=== PATIENT | male | born 1940 | race Caucasian/White ===

== ENCOUNTER 2021-08-28 02:14 | Inpatient (IN) | payer OTHER, MEDICAID, SELFPAY ==
[~2021-08-28] VITALS: Ht 182.9 cm; Wt 88.5 kg
[2021-08-28 02:26] VITALS: BP_SYST 132
--- NOTE | 2021-08-28 02:26 | NUR ---
Patient to ER bed 1 to gown for evaluation. Side rails up.
--- NOTE | 2021-08-28 02:28 | NUR ---
Assumed total care of patient. Patient GCS 15, BIB ALS from home, found by son on bathroom floor with feces on him, unconscious. When medics arrived, patients BP was hypotensive in the 80s, received fluids. Blood sugar was 131. Per family, patient has been feeling weak for 2 weeks. Patient denies any head/neck, chest, leg, arm pain. Patient does not appear to have any noticeable bruising/abrasions to head or body. Patient on resident intern, VSS, breathing even and unlabored, no signs of acute distress noted. Patient clothes disrobed, patient cleaned and wiped, placed in clean gown, given warm blankets.
[2021-08-28] MEDS ORDERED: NACL 0.9% 1,000 ML IV ONE (02:30)
--- NOTE | 2021-08-28 02:30 | NUR ---
# 18 gauge angiocath placed to LAC placed by fire. Opsite placed over site. Blood return noted. Blood for lab drawn from site. Flushed with 10 cc of normal saline. No evidence of infiltration noted.
--- NOTE | 2021-08-28 02:32 | NUR ---
ER Dr. Ocampo at bedside examining patient.
--- NOTE | 2021-08-28 02:55 | NUR ---
Patient transported to radiology via gurney, accompanied by Boubacar RN.
--- NOTE | 2021-08-28 03:00 | NUR ---
Returned from radiology, back to [facility].
[2021-08-28 03:59] LABS: HEMATOCRIT 34.9 % (36-54); HEMOGLOBIN 11.9 g/dL (14.0-18.0); MEAN CORPUSCULAR HEMOGLOBIN 30 pg (27-31); MEAN CORPUSCULAR HGB CONC 34 % (32-36); MEAN CORPUSCULAR VOLUME 89 fL (79.0-98.0); PLATELET COUNT (AUTO) 149 K/uL (130-430); RED BLOOD CELL COUNT(AUTO) 3.93 MIL/uL (4.2-6.2); WHITE BLOOD COUNT (AUTO) 3.8 K/uL (4.8-10.8)
[2021-08-28 04:00] LABS: ANION GAP 12 (5-15); CALCIUM 8.5 mg/dL (8.4-11.0); CHLORIDE 97 mmol/L (98-107); GLUCOSE 104 mg/dL (70-99); POTASSIUM 3.4 mmol/L (3.5-5.1); SODIUM SERUM 135 mmol/L (136-145); UREA NITROGEN, BLOOD 21 mg/dL (8-21)
[2021-08-28 04:08] LABS: ALANINE AMINOTRANSFERASE 29 U/L (12-78); ALBUMIN 3.3 g/dL (3.4-4.8); ASPARTATE AMINOTRANSFERASE 32 U/L (10-37); TOTAL BILIRUBIN 0.2 mg/dL (0.0-1.0)
[2021-08-28 04:09] LABS: ALCOHOL, BLOOD < 3 mg/dL (<10)
[2021-08-28 04:20] LABS: PROTHROMBIN TIME 10.4 SECS (9.5-12.5)
--- NOTE | 2021-08-28 04:40 | NUR ---
Lab at bedside for blood draw
--- NOTE | 2021-08-28 04:50 | NUR ---
Patient given urinal to provide urine sample
--- NOTE | 2021-08-28 05:00 | NUR ---
Patient unable to urinate at this moment. aware. Verbal order received for in n out cather
[2021-08-28 05:28] LABS: LYMPHOCYTES % (MANUAL) 14 % (20-46); MONOCYTES % (MANUAL) 8 % (0-11)
--- NOTE | 2021-08-28 05:28 | NUR ---
Dr. Ocampo speaking with patients son on phone
--- NOTE | 2021-08-28 05:28 | NUR ---
Orthostatics performed and given to
--- NOTE | 2021-08-28 05:34 | NUR ---
Patient given water to drink
--- NOTE | 2021-08-28 06:05 | NUR ---
Received admit orders from Dr. Huang
--- NOTE | 2021-08-28 06:09 | NUR ---
Patient will be admitted to care of Dr. Amezquita. Admitted to MS unit. Will go to room pending. Belongings list completed. Complete and up to date summary report printed. SBAR report to be given at bedside with opportunity for questions.
--- NOTE | 2021-08-28 06:12 | NUR ---
Patient's code status is Full Code paperwork completed and placed in chart.
[2021-08-28 07:07] LABS: BILIRUBIN,URINE NEGATIVE (NEGATIVE); CLARITY/URINE CLEAR (CLEAR); COLOR,URINE YELLOW (YELLOW); GLUCOSE,URINE NEGATIVE (NEGATIVE); KETONES,URINE NEGATIVE (NEGATIVE); LEUKOCYTE ESTERASE ,URINE NEGATIVE (NEGATIVE); NITRITE, URINE NEGATIVE (NEGATIVE); PROTEIN URINE 1+ (NEGATIVE); UROBILINOGEN,URINE 0.2 (0.2-1.0)
--- NOTE | 2021-08-28 07:07 | NUR ---
Report given to JEFFREY Jean for continuation of care.
[2021-08-28 07:09] LABS: BLOOD, URINE TRACE (NEGATIVE)
[2021-08-28 07:15] LABS: BACTERIA,URINE FEW /HPF (None Seen); MUCUS,URINE 1+ /LPF (None Seen); WBC,URINE 0-3 /HPF (0-3)
[2021-08-28] MEDS ORDERED: HYDROcodone/ACETAMIN 10-325 MG TAB PO PRN (07:15)
[2021-08-28] MEDS ORDERED: HYDROcodone/ACETAMIN 5-325 MG TAB (NORCO/ VICODIN) PO PRN (07:15)
[2021-08-28] MEDS ORDERED: ACETAMINOPHEN 325 MG TABLET PO PRN ×2 (07:15→07:30)
[2021-08-28] MEDS ORDERED: ONDANSETRON HCL 4 MG/2 ML VIAL IVP PRN (07:15)
[2021-08-28] MEDS ORDERED: LORazepam 2 MG/ML VIAL IVP PRN (07:15)
[2021-08-28] MEDS ORDERED: NALOXONE HCL 0.4 MG/ML AMP (NARCAN) IVP PRN ×2 (07:15)
[2021-08-28] MEDS ORDERED: IPRATROPIUM BROM 0.5 MG/2.5 ML VIAL.NEB (ATROVENT) INH PRN (07:15)
[2021-08-28] MEDS ORDERED: ALBUTEROL SULFATE 0.083% 2.5 MG/3 ML VIAL.NEB INH PRN (07:15)
[2021-08-28 07:19] LABS: BARBITURATE, URINE NEGATIVE (NEG <=200); METHAMPHETAMINES SCREEN,URINE NEGATIVE (NEG <=500); URINE AMPHETAMINE NEGATIVE (NEG <=500)
[2021-08-28 07:20] LABS: BENZODIAZEPINE, URINE NEGATIVE (NEG <=150); CANNABINOID, URINE NEGATIVE (NEG <=50); COCAINE, URINE NEGATIVE (NEG <=150); OPIATE, URINE NEGATIVE (NEG <=100); PHENCYCLIDINE SCREEN,URINE NEGATIVE (NEG <=25); UR TRICYCLIC ANTIDEPRESSANTS NEGATIVE (NEG <=300); URINE METHADONE NEGATIVE (NEG <=200); URINE OXYCODONE SCREEN NEGATIVE (NEG <=100); URINE PROPOXYPHENE SCREEN NEGATIVE (NEG <=300)
--- NOTE | 2021-08-28 07:58 | NUR ---
ULTRASOUND AT BEDSIDE
[2021-08-28] MEDS: D5/0.45 NS 1,000 ML IV SCH ×2 (09:19→19:54)
[2021-08-28] MEDS: cefTRIAXone 1 GM IVPB PREMIX 50 ML IV SCH (09:39)
[2021-08-28] MEDS: ENOXAPARIN SODIUM 30 MG/0.3 ML SYRINGE SUBCUT SCH (09:41)
[2021-08-28] MEDS: DECADRON 4 MG TABLET PO SCH (09:41)
--- NOTE | 2021-08-28 09:50 | NUR ---
ADMISSION NOTE Received patient from ER via gurney. Patient admitted with diagnosis of . Patient is awake, alert, oriented X 3. Patient oriented to hospital room, call light, toileting, pain management and safety-teach back done. Patient informed that Katey will be her nurse and that their room number is 125-A. Personal belongings checked and Belongings List documented. Call light within reach.
--- NOTE | 2021-08-28 10:04 | NUR ---
CONSULTATION PAGED REASON FOR CONSULTATION: COVID WAS CONSULT CALLED?Y PERSON WHO WAS NOTIFIED:ASHLEY CONSULTING PHYSICIAN:ELLEN DURON BREWERY REPRESENTATIVE SPECIALTY:INFECTIOUS DISEASE BREWERY REPRESENTATIVE PHONE NUMBER:[phone] REQUESTING PHYSICIAN:NGUYEN FENTON
--- NOTE | 2021-08-28 10:08 | NUR ---
Patient will be admitted to care of [facility]. Admitted to med surg unit. Will go to room 125. Belongings list completed. Complete and up to date summary report printed. SBAR report to be given at bedside with opportunity for questions.
[2021-08-28 10:12] VITALS: BP_SYST 163
--- NOTE | 2021-08-28 10:13 | NUR ---
CONSULTATION PAGED REASON FOR CONSULTATION:SYNCOPE WAS CONSULT CALLED? PERSON WHO WAS NOTIFIED:JONEL BOBBY CONSULTING PHYSICIAN:JONEL BOBBY INTERVENTIONAL PHYSIATRIST SPECIALTY:CARDIO INTERVENTIONAL PHYSIATRIST PHONE [phone] REQUESTING PHYSICIAN:KUSUM WASSERMAN AMIT
--- NOTE | 2021-08-28 10:19 | NUR ---
CONSULTATION PAGED REASON FOR CONSULTATION:SYNCOPE WAS CONSULT CALLED?Y PERSON WHO WAS NOTIFIED:TEXT MESSAGED ARAMIS MCGRATH CONSULTING PHYSICIAN:ARAMIS MCGRATH SEWING MACHINE ATTACHMENT TESTER SPECIALTY:NEURO SEWING MACHINE ATTACHMENT TESTER PHONE NUMBER:[phone] REQUESTING PHYSICIAN:NGUYEN FENTON
--- NOTE | 2021-08-28 11:55 | NUR ---
Up grade to telemetry: Patient up graded to telemetry per Dr Barnett.
[2021-08-28] MEDS: AZITHROMYCIN 500 MG in NS 250 ML IV SCH (12:20)
[2021-08-28 12:32] VITALS: BP_SYST 159
--- NOTE | 2021-08-28 15:27 | NUR ---
PHYSICAL THERAPY EVALUATION COMPLETED. PATIENT IS ABLE TO AMBULATE WITH ASSISTANCE. NEEDS FWW FOR STABILITY.
[2021-08-28 16:00] VITALS: BP_SYST 155
--- NOTE | 2021-08-28 16:47 | NUR ---
Home Coordinator took over care of pt. No voiced concerns. Will continue to monitor.
--- NOTE | 2021-08-28 16:47 | NUR ---
Transfer Care: Transfer care to Nereyda Du,patient in stable condition.
--- NOTE | 2021-08-28 18:14 | NUR ---
Pt resting in bed. No voiced concerns. Call smith in reach. Bed in low position. Will continue to monitor.
[2021-08-28 20:25] VITALS: BP_SYST 131
[2021-08-28] MEDS: ASCORBIC ACID 500 MG TABLET PO SCH (21:04)
[2021-08-29 01:01] VITALS: BP_SYST 150
--- NOTE | 2021-08-29 07:17 | NUR ---
HANDOFF WITH JEFFREY HANKS. MAURI HOFFMAN RN
--- NOTE | 2021-08-29 07:30 | NUR ---
rn opening note patient is awake and alert. report was endorsed by night nurse. patient has no signs of any distress, breathing is equal and non labored. all safety precautions in place
[2021-08-29 08:03] VITALS: BP_SYST 149
--- NOTE | 2021-08-29 10:00 | NUR ---
medication Patient given all scheduled medication.tolerated well. Patient has call light with him educate to use call light for assistance. no other needs at this time. urinal emptied. no other needs at this time.
[2021-08-29] MEDS: CHOLECALCIFEROL (VITAMIN D3) 5,000 UNIT TABLET PO SCH (10:05)
[2021-08-29] MEDS: ASCORBIC ACID 500 MG TABLET PO SCH ×2 (10:05→21:28)
[2021-08-29] MEDS: amLODIPine BESYLATE 5 MG TABLET PO SCH (10:05)
[2021-08-29] MEDS: DECADRON 4 MG TABLET PO SCH (10:05)
[2021-08-29] MEDS: cefTRIAXone 1 GM IVPB PREMIX 50 ML IV SCH (10:06)
[2021-08-29] MEDS: ENOXAPARIN SODIUM 30 MG/0.3 ML SYRINGE SUBCUT SCH ×2 (10:12→21:30)
[2021-08-29] MEDS: AZITHROMYCIN 500 MG in NS 250 ML IV SCH (11:19)
[2021-08-29] MEDS: D5/0.45 NS 1,000 ML IV SCH (11:20)
[2021-08-29 12:00] VITALS: BP_SYST 150
[2021-08-29] MEDS ORDERED: ENOXAPARIN SODIUM 30 MG/0.3 ML SYRINGE SUBCUT SCH (13:45)
--- NOTE | 2021-08-29 14:00 | NUR ---
rn rounding patient shows no complaints a this time. call light is with him educated to use for assistance. no other needs at this time.
[2021-08-29 15:00] VITALS: BP_SYST 160
--- NOTE | 2021-08-29 19:10 | NUR ---
rn closing note report was endorsed to night nurse. patient is awake and alert sitting in bed, no signs of any distress, breathing is equal and non labored. patient has all safety precautions in place. patient has no other needs at this time. patient is on the phone with his son.
[2021-08-29 20:25] VITALS: BP_SYST 138
[2021-08-29] MEDS: CARBIDOPA/LEVODOPA 25/100 MG TABLET PO SCH (21:28)
[2021-08-30 00:36] VITALS: BP_SYST 170
[2021-08-30 00:40] VITALS: BP_SYST 90
[2021-08-30] MEDS: D5/0.45 NS 1,000 ML IV SCH ×2 (00:45→15:16)
--- NOTE | 2021-08-30 07:25 | NUR ---
HANDOFF WITH JEFFREY CHEEMA. MAURI HOFFMAN RN
[2021-08-30 08:00] VITALS: BP_SYST 144
[2021-08-30] MEDS: CARBIDOPA/LEVODOPA 25/100 MG TABLET PO SCH ×4 (09:22→22:13)
[2021-08-30] MEDS: DECADRON 4 MG TABLET PO SCH (09:22)
[2021-08-30] MEDS: ASCORBIC ACID 500 MG TABLET PO SCH ×2 (09:22→22:13)
[2021-08-30] MEDS: amLODIPine BESYLATE 5 MG TABLET PO SCH (09:23)
[2021-08-30] MEDS: CHOLECALCIFEROL (VITAMIN D3) 5,000 UNIT TABLET PO SCH (09:23)
[2021-08-30] MEDS: ENOXAPARIN SODIUM 30 MG/0.3 ML SYRINGE SUBCUT SCH ×2 (09:25→22:14)
[2021-08-30] MEDS: cefTRIAXone 1 GM IVPB PREMIX 50 ML IV SCH (09:39)
[2021-08-30] MEDS: AZITHROMYCIN 500 MG in NS 250 ML IV SCH (09:40)
[2021-08-30 11:45] LABS: BASOPHILS % (AUTO) 0.5 % (0.0-2.0); EOSINOPHILS % (AUTO) 0.4 % (0.0-4.0); HEMATOCRIT 34.2 % (36-54); HEMOGLOBIN 11.6 g/dL (14.0-18.0); MEAN CORPUSCULAR HEMOGLOBIN 30 pg (27-31); MEAN CORPUSCULAR HGB CONC 34 % (32-36); MEAN CORPUSCULAR VOLUME 88 fL (79.0-98.0); MONOCYTES # (AUTO) 0.5 K/uL (0.0-1.0); NEUTROPHILS % (AUTO) 67.1 % (40.0-70.0); PLATELET COUNT (AUTO) 153 K/uL (130-430); RED BLOOD CELL COUNT(AUTO) 3.88 MIL/uL (4.2-6.2); RED CELL DISTRIBUTION WIDTH 12.8 % (9.0-15.0); WHITE BLOOD COUNT (AUTO) 4.5 K/uL (4.8-10.8)
[2021-08-30 12:00] VITALS: BP_SYST 138
[2021-08-30 12:12] LABS: ANION GAP 10 (5-15); CALCIUM 8.3 mg/dL (8.4-11.0); CHLORIDE 99 mmol/L (98-107); CREATININE 1.13 mg/dL (0.55-1.30); GLUCOSE 106 mg/dL (70-99); SODIUM SERUM 137 mmol/L (136-145); UREA NITROGEN, BLOOD 19 mg/dL (8-21)
[2021-08-30 12:14] LABS: POTASSIUM 2.9 mmol/L (3.5-5.1)
[2021-08-30 12:18] LABS: ALANINE AMINOTRANSFERASE 16 U/L (12-78); ALBUMIN 2.8 g/dL (3.4-4.8); ASPARTATE AMINOTRANSFERASE 20 U/L (10-37); TOTAL BILIRUBIN 0.1 mg/dL (0.0-1.0)
[2021-08-30] MEDS ORDERED: POTASSIUM CHLORIDE 20 MEQ TAB.PRT.SR PO ONE (14:15)
[2021-08-30 16:00] VITALS: BP_SYST 142
[2021-08-30 21:00] VITALS: BP_SYST 149
--- NOTE | 2021-08-30 21:25 | NUR ---
LOVENOX 30 MG SUB Q. administer as ordered no adverse Reaction noted skin dry warm .
[2021-08-31] VITALS (7 sets, daily range): BP systolic 141–161
--- NOTE | 2021-08-31 01:59 | NUR ---
Hourly Rounding patient Resting HOB elevated call smith given to patient FALL MEASURES implemented chest movement symmetrical assist as needed .
--- NOTE | 2021-08-31 05:35 | NUR ---
Patient using bed side urinal as needed Respirations Remain Regular also unlabored call smith given to patient / .
--- NOTE | 2021-08-31 07:33 | NUR ---
Nutrition Update Avery Scale 17 noted. Pt admitted for syncope, general weakness, COVID 19. Diet: regular BMI: 26.4 kg/m2 RD to follow per nutrition care standards.
--- NOTE | 2021-08-31 08:00 | NUR ---
PATIENT IS ASLEEP AROUSABLE WITH VERBAL STIMULI, ORIENTED X 4 TO NAME, PERSON, PLACE, AND TIME. RESPIRATION EVEN AND UNLABORED NO S/S OF ANY ACUTE DISTRESS NOTED. ABLE TO VERBALIZE NEEDS NO C/O PAIN OR DISCOMFORT NOTED. ABDOMEN SOFT AND NON-DISTENDED, POSITIVE BOWEL SOUND X 4 NO N/V OR DIARRHEA NOTED. SKIN WARM AND DRY INTACT W/O ANY REDNESS OR EDEMA NOTED. WILL CONTINUE TO REASSESS PATIENT PRN.
[2021-08-31] MEDS: CHOLECALCIFEROL (VITAMIN D3) 5,000 UNIT TABLET PO SCH (09:00)
[2021-08-31] MEDS: ASCORBIC ACID 500 MG TABLET PO SCH ×2 (09:00→21:00)
[2021-08-31] MEDS: CARBIDOPA/LEVODOPA 25/100 MG TABLET PO SCH ×5 (09:00→21:00)
[2021-08-31] MEDS: amLODIPine BESYLATE 5 MG TABLET PO SCH (09:01)
[2021-08-31] MEDS: ENOXAPARIN SODIUM 30 MG/0.3 ML SYRINGE SUBCUT SCH ×2 (09:02→21:02)
[2021-08-31] MEDS: cefTRIAXone 1 GM IVPB PREMIX 50 ML IV SCH (09:05)
[2021-08-31] MEDS: DECADRON 4 MG TABLET PO SCH (09:05)
[2021-08-31 09:53] LABS: BASOPHILS % (AUTO) 0.2 % (0.0-2.0); HEMATOCRIT 34.3 % (36-54); HEMOGLOBIN 11.6 g/dL (14.0-18.0); LYMPHOCYTES # (AUTO) 0.9 K/uL (1.0-5.5); MEAN CORPUSCULAR HEMOGLOBIN 30 pg (27-31); MEAN CORPUSCULAR HGB CONC 34 % (32-36); MEAN CORPUSCULAR VOLUME 89 fL (79.0-98.0); MONOCYTES # (AUTO) 0.3 K/uL (0.0-1.0); MONOCYTES % (AUTO) 6.2 % (1.7-9.3); NEUTROPHILS % (AUTO) 76.6 % (40.0-70.0); PLATELET COUNT (AUTO) 176 K/uL (130-430); RED BLOOD CELL COUNT(AUTO) 3.86 MIL/uL (4.2-6.2); RED CELL DISTRIBUTION WIDTH 12.8 % (9.0-15.0); WHITE BLOOD COUNT (AUTO) 5.2 K/uL (4.8-10.8)
[2021-08-31 10:03] LABS: ANION GAP 10 (5-15); CALCIUM 8.4 mg/dL (8.4-11.0); CHLORIDE 99 mmol/L (98-107); CREATININE 1.21 mg/dL (0.55-1.30); GLUCOSE 187 mg/dL (70-99); POTASSIUM 3.4 mmol/L (3.5-5.1); SODIUM SERUM 136 mmol/L (136-145); UREA NITROGEN, BLOOD 22 mg/dL (8-21)
[2021-08-31 10:09] LABS: ALANINE AMINOTRANSFERASE 14 U/L (12-78); ALBUMIN 2.7 g/dL (3.4-4.8); ASPARTATE AMINOTRANSFERASE 16 U/L (10-37); TOTAL BILIRUBIN 0.2 mg/dL (0.0-1.0)
[2021-08-31] MEDS: AZITHROMYCIN 500 MG in NS 250 ML IV SCH (11:11)
[2021-08-31] MEDS ORDERED: ALBUTEROL MDI INHALATION 8 GM INH INH PRN (13:45)
--- NOTE | 2021-08-31 18:57 | NUR ---
REMAINED STABLE, AFEBRILE, W/O ANY CHANGE IN LOC NO ADVERSE REACTION FROM CURRENT MEDICATION REGIMENT NOTED. TOLERATED PO WELL WITH FAIR APPETITE. WILL ENDORSE PATIENT TO PM SHIFT NURSE
[2021-09-01 01:14] VITALS: BP_SYST 158
[2021-09-01 06:04] VITALS: BP_SYST 148
[2021-09-01 08:00] VITALS: BP_SYST 164
[2021-09-01] MEDS: cefTRIAXone 1 GM IVPB PREMIX 50 ML IV SCH (08:42)
[2021-09-01] MEDS: ENOXAPARIN SODIUM 30 MG/0.3 ML SYRINGE SUBCUT SCH (09:00)
[2021-09-01] MEDS: ASCORBIC ACID 500 MG TABLET PO SCH (09:01)
[2021-09-01] MEDS: DECADRON 4 MG TABLET PO SCH (09:01)
[2021-09-01] MEDS: CARBIDOPA/LEVODOPA 25/100 MG TABLET PO SCH ×3 (09:02→16:45)
[2021-09-01] MEDS: amLODIPine BESYLATE 5 MG TABLET PO SCH (09:03)
[2021-09-01] MEDS: CHOLECALCIFEROL (VITAMIN D3) 5,000 UNIT TABLET PO SCH (09:04)
[2021-09-01 10:00] VITALS: BP_SYST 164
[2021-09-01] MEDS ORDERED: ASPI-1393 PO (11:47)
[2021-09-01] MEDS ORDERED: DONE10TA44 PO (11:47)
[2021-09-01] MEDS ORDERED: OMEP-393 (11:48)
[2021-09-01] MEDS ORDERED: SIMV40TA2 PO (11:48)
[2021-09-01] MEDS ORDERED: CARB1TAB10 PO (11:50)
[2021-09-01] MEDS ORDERED: LEVO125T PO (11:52)
[2021-09-01] MEDS ORDERED: DOCU-144 PO (11:52)
--- NOTE | 2021-09-01 16:00 | NUR ---
0800: AWAKE, ALERT, ORIENTED X 4 TO NAME, PERSON, PLACE, AND TIME. RESPIRATION EVEN A ND UNLABORED NO S/S OF ANY ACUTE DISTRESS NOTED. ABLE TO VERBALIZE NEEDS NO C/O ANY PAIN OR DISCOMFORT NOTED. ABDOMEN SOFT AND NON-DISTENDED, POSITIVE BOWEL SOUND X 4 NO N/V OR DIARRHEA NOTED. SKIN WARM AND DRY INTACT NO REDNESS OR EDEMA NOTED. 0930: DR. COSTA SAW PATIENT WITH PLAN TO DC'D HOME POST SESSION WITH PHYSICAL THERAPY. 1530: PATIENT AMBULATED WELL WITH PT WITH STANDBY ASSIST ABLE TO MOVE SELF AND AMBULATED INDEPENDENTLY WITH FWW. DR. COSTA MADE AWARE WILL ENTER ORDER TO DISCHARGE PATIENT PLANNED
[2021-09-01] MEDS ORDERED: CARB-290 PO (16:02)
--- NOTE | 2021-09-01 17:17 | NUR ---
REG NURSE LESLIE INFORMED THAT THE PATIENT IS OFF THE LEADS
--- NOTE | 2021-09-01 17:30 | NUR ---
PATIENT DISCHARGE HOME PER DR. COSTA POST SESSION WITH PT PLANNED, NEW PRESCRIPTION FOR LEVADOPA SENT ELECTRONIC TO PATIENT'S CHOICE OF RX. IV HEPLOCK AND CARDIAC MONITORING D'CD. PATIENT REMAINED STABLE AND AFEBRILE, TO FOLLOW UP WITH OWN MD IN 1-2 WEEKS. PATIENT VERBALIZE UNDERSTANDING AND WILL COMPLY WITH INSTRUCTION GIVEN, WAS PICKED UP BY SON IN FRONT OF THE FACILITY.
--- NOTE | 2021-09-02 07:50 | NUR ---
PHYSICAL THERAPY CO-SIGN The Physical Therapy Progress Notes documented by Senior Instructional Designer have been reviewed. Reviewed/Co-Signed by: Russell Taylor Documentation Done by: HERMES GOLDBERG PTA Addendum: 09/02/21 at 0751 by Russell Taylor PT Amended: Links added.
== END 2021-09-01 17:40 | disposition home or self-care (01) | DRG 871 ==
LOC: SED 02:14 → SMU 06:05 → STU 10:08
PROVIDERS: ADMIT Internal Medicine Hospice and Palliative Medicine; ATTEND Internal Medicine Hospice and Palliative Medicine
DX: A41.9 Sepsis, unspecified organism (principal); U07.1 COVID-19; N17.9 Acute kidney failure, unspecified; E87.1 Hypo-osmolality and hyponatremia; G20 Parkinson's disease; F02.80 Dementia in other diseases classified elsewhere, unspecified severity, without behavioral disturbance, psychotic disturbance, mood disturbance, and anxiety; I25.10 Atherosclerotic heart disease of native coronary artery without angina pectoris; E86.0 Dehydration; E87.6 Hypokalemia; E88.09 Other disorders of plasma-protein metabolism, not elsewhere classified; C61 Malignant neoplasm of prostate; D64.9 Anemia, unspecified; I25.2 Old myocardial infarction; Z85.46 Personal history of malignant neoplasm of prostate; Z87.891 Personal history of nicotine dependence
CPT/HCPCS: 36415; 70450-TC; 71045; 76376; 80053; 80307; 81000; 82272; 82728; 83605; 84484; 85007; 85025; 85027; 85379; 85610-TC; 85730-TC; 86140; 87040; 93005; 93306; 93880; 94760; 96360; 97116-GP; 97163-GP; 97530-GP; 99285; G0378; G0482; J0456; J0696; J1650; J7050; J8540